=== PATIENT | male | born 1975 | race Caucasian/White ===

== ENCOUNTER 2016-04-20 10:12 | Inpatient (IN) | payer OTHER ==
[~2016-04-20] VITALS: Ht 177.8 cm; Wt 102.5 kg
--- NOTE | ~2016-04-20 | RESCARESUM ---
"PATIENT: WAYNE GARCIA | | [facility] UNIT #: [id number] | [address] AGE/SEX: 40 M : 73 | [address] | [place] [address] ADMIT/REG DATE: 04/20/16 | ROOM: [facility] LOC: ADTC | ADTC | Summary of Residential Care Primary [facility] Date of Admission: 04/20/16 Date of Discharge: 05/18/16 Referral Source: probation Primary Care Provider Prior to Admission: none Admitting Diagnosis: F15.20 Stimulant Use Disorder, severe; F12.20 Cannabis Use Disorder, severe; F10.20 Alcohol Use Disorder, moderate; Nicotine dependence, chronic low back pain all per Dr. Richardson's history and physical examination. Discharge Diagnosis: Same as above Goals Achieved: Client verbalized understanding of the severity of his powerlessness and unmanagability related to his substance use. He practiced identifying and appropriately expressing feelings. Client began to work on relapse triggers and a prevention plan. Continued Obstacles to Sobriety/Relapse Issues: Client continues to have criminal thinking in all aspects of his life. He needs to work on this and his anger in order to prevent himself from relapsing. Family Issues Addressed: Client attended family education with his significant other. Y Individual Therapy Y Group Therapy Y Educational Series on Substance Abuse Y Parents/Significant Others Attended Family Program N Acute Medical Problems During the Course of Treatment N Transferred to Hospital During the Course of Treatment Y Accepting of Substance Abuse Problem N Non-accepting of Substance Abuse Problem N Required Psychological or Psychiatric Consultation During the Course of Treatment Completed AA Step # 1 During This Level of Care Significant Incidences During Treatment: None Reason For Discharge: X Completed Residential TX Goals and Ready For Next Level of Care N Left Tx Against Medical Advice/Treatment Goals Not Complete N Completed Residential Tx Goals But Refusing Continuing Care Recommendations N Discharged Due to Noncompliance/Treatment Goals not Completed N Discharged Earlier Than Planned Due to: Continuing Care Plan/Recommendations: PATIENT: WAYNE GARCIA | | [facility] UNIT #: [id number] | [address] AGE/SEX: 40 M : 73 | [address] | [place] [address] ADMIT/REG DATE: 04/20/16 | ROOM: [facility] LOC: ADTC | ADTC | Summary of Residential Care N Intensive Partial Care Y Sponsor N Partial Care Y AA Meetings/NA Meetings N Outpatient N Co-dependency Services N Therapeutic Community N 1/ Way House N 3/ Way House N Mental Health Therapy N Marriage Counseling Y Other Specific Continuing Care Plan: Client is going to reside at home in [place] and continue outpatient therapy with Benoit Juárez. He is recommended to attend NA/AA meetings, gain and reach out to a male sponsor, and work a strong program of recovery. PRIMARY COUNSELOR: Hilda Elizabeth"
--- NOTE | ~2016-04-20 | INDIVTXPL2 ---
"PATIENT: WAYNE GARCIA | | [facility] UNIT #: [id number] | [address] AGE/SEX: 40 M : 73 | [address] | [place] [address] ADMIT/REG DATE: 04/20/16 | ROOM: [facility] LOC: ADTC | ADTC | Individualized Treatment Plan DATE: 04/27/16 Problem Statement/Issue Identified: Client continued to use alcohol &/or drugs despite ongoing negative consequences. Goal: Client will learn how to identify negative consequences of his addiction, attend AA/NA meetings and meet men in recovery. Objectives/Activities to achieve goal: 1. Client is to complete the How to Get Started packet, which will help him take a look at how his addiction has progressed in his life, and share it with his counselor and selected pages in group. Due Date: 05/04/16 Complete: Incomplete: 2. Client is to complete Step 1, learning how he compromised his core values, and share with his counselor and selected pages in group. Due Date: 05/04/16 Complete: Incomplete: 3. Client is to attend AA/NA meetings, ask for and get at least 5 names and numbers of men in recovery, so he can build a support system and gain a possible sponsor and share with his counselor. Due Date: on-going Complete: Incomplete: Client Signature Date Counselor Signaure: Date Outcome/Measurement of Progress Towards Goal: Counselor Signature: Date "
--- NOTE | ~2016-04-20 | TXPLANREV ---
"PATIENT: WAYNE GARCIA | | [facility] UNIT #: [id number] | [address] AGE/SEX: 40 M : 73 | [address] | [place] [address] ADMIT/REG DATE: 04/20/16 | ROOM: [facility] LOC: ADTC | ADTC | Treatment Plan/Staffing Review Date: 05/11/16 Treatment plan was reviewed and determined appropriate as written: yes Treatment plan was reviewed and the following changes/addition/deletions are necessary: Client will discharge from treatment and [facility]. Client will then return home and do counseling with Benoit Juárez. Probation is in agreement with this. Discharge plans were reviewed and determined appropriate as previously documented: Client will complete treatment and then finish out his sentence in [facility]. Client will then return home and continue counseling with Benoit Juárez. Discharge plans were reviewed and determined to be as follows: see above Other pertinent issues discussed during this staffing review include: none Staff Present: Sonal Rojas, Kelsie Parra, Shakira Farrell PRIMARY COUNSELOR: Hilda Elizabeth Client Signature Counselor Signature Date Time "
--- NOTE | ~2016-04-20 | CLPRLASSUM ---
PATIENT: WAYNE GRACIA | | [facility] UNIT #: [id number] | [address] AGE/SEX: 40 M : 73 | [address] | [place] [address] ADMIT/REG DATE: 04/20/16 | ROOM: [facility] LOC: ADTC | ADTC | Client Problem List/Assessment Summary Date: 04/27/16 Problems identified by the client: feeling alone, isolating, Problems identified by significant others: old friends, cravings Client's Strengths: good dad, leadership, can go in the right direction Problem List: Code: T Client continued to use drugs despite ongoing negative consequences. Code: T Client does not "reach-out to others for help" and instead resumes using drugs. Code: T Client relapsed/returned to drug usage after previous treatment attempts. Code: T Client has unresolved guilt and shame issues and needs to work on forgiveness of self to avoid relapse. Code [place]: T: to be addressed during course of treatment O: problem noted, expected to resolve itself with abstinence--specific tx plan not required R: problem noted, will be referred upon discharge PRIMARY COUNSELOR: Hilda Elizabeth
--- NOTE | ~2016-04-20 | TXPLANREV ---
"PATIENT: WAYNE GARCIA | | [facility] UNIT #: [id number] | [address] AGE/SEX: 40 M : 73 | [address] | [place] [address] ADMIT/REG DATE: 04/20/16 | ROOM: [facility] LOC: ADTC | ADTC | Treatment Plan/Staffing Review Date: 05/04/16 Treatment plan was reviewed and determined appropriate as written: yes Treatment plan was reviewed and the following changes/addition/deletions are necessary: Client is wanting to go home from treatment and continue therapy with Benoit Juárez. Discharge plans were reviewed and determined appropriate as previously documented: yes Discharge plans were reviewed and determined to be as follows: Client wants to return home and continue therapy with Benoit Juárez. Other pertinent issues discussed during this staffing review include: none Staff Present: Sarah Rangel, Sonal Rojas PRIMARY COUNSELOR: Hilda Elizabeth Client Signature Counselor Signature Date Time "
--- NOTE | 2016-04-20 12:56 | NUR ---
ADMISSION NOTE Rights/Responsibilities: Copy given and explained to client. Signed and accepted by client. Client oriented to physical lay out of the ADTC unit, given Big Book and admission packet. A Clement was assigned. Salvador Client is a 40yr old single male. Referred by Benoit Encarnacion. Brought to tx by friend for [facility] where he has been for the past 90 days. Lives in [place], [place]. DOC, meth last used 01/27/16, two grams daily. No allergies, No meds. Parents will participate in tx. Was searched no contraband found. Initial paperwork given and guidelines gone over. Doctor was notified.
--- NOTE | 2016-04-20 20:01 | NUR ---
SPIRITUaL EDUCATION 1 HR. Today we discussed difference between spirituality and orthodoxy, and then played a spiritual challenge game where group discussed thought provoking questions on spirituality and the meaning.
--- NOTE | 2016-04-20 22:41 | NUR ---
EDUCATION NOTE: 1 HR Counselor gave a lecture on Disease Concept
--- NOTE | 2016-04-20 23:35 | NUR ---
tech note: Client was seen by the DR. Client played Pictionary for recreation & attended onsite NA [facility] [place]. Client gave his first intro. Client was seen by the
--- NOTE | 2016-04-21 04:09 | NUR ---
BED NOTE: Client was in bed, motionless with eyes closed all three bed checks.
--- NOTE | 2016-04-21 06:15 | NUR ---
Medication Note: Client took prn ibuporphen for H/A rated at 10. Client had a small snack it the kitchen.
--- NOTE | 2016-04-21 11:57 | NUR ---
Group 1.5 Hr Ratio 2:20/Topic today was dealing with trauma. A new peer was also orientated to group rules and goals. Client shared how he could relate to what peers were sharing related to trauma.
--- NOTE | 2016-04-21 15:19 | NUR ---
Individual Therapy, 1.0 hours, This session focused on orienting client about individual therapy, group and rules of group, family participation, release of information and contact, confidentiality, visiting hours and visitors list, significant event forms, and room checks. Clients inital treatment plan was also reviewed.
--- NOTE | 2016-04-21 15:26 | NUR ---
Family contact: Clients mother and significant other was called and invited to family education. She was also given visiting hours.
--- NOTE | 2016-04-21 15:27 | NUR ---
Trauma Note: Client talked about trauma that he has had in the past which will be addressed in individual counseling sessions.
--- NOTE | 2016-04-21 15:29 | NUR ---
Tech Note: Client participated in Spiritual Enrichment in the morning and went for an outdoor walk in the afternoon. Client stated that he is working on, "How to Get Started in Treatment."
--- NOTE | 2016-04-21 16:29 | NUR ---
Step ed./1 hr/ Focus was on step 7 "Humbly asked him to remove our shortcomings". Had them complete some questions on paper then discussed. This client participated.
--- NOTE | 2016-04-21 22:07 | NUR ---
EDUCATION NOTE 1HR: Recovery committee presented information on recovery
--- NOTE | 2016-04-21 22:10 | NUR ---
EDUCATION NOTE 1HR: Clients watched Nikolai Langston video on Behavior
--- NOTE | 2016-04-21 22:36 | NUR ---
TECH NOTE: Client helped by doing crafts for the dance for REC, and attended AA meeting.
--- NOTE | 2016-04-22 04:39 | NUR ---
Bed note: client was in bed moitionless with eyes closed and no distress at all bed checks.
--- NOTE | 2016-04-22 11:54 | NUR ---
Group 1.5 Hr Ratio 1:11/Topics today were orientating a new member to group rules and goals and a couple getting started packets. Client shared how he could relate to what peers were sharing from their assignments and issues. Client shared 1.5 hr groups are too long and was explained it develops patiense.
--- NOTE | 2016-04-22 15:50 | NUR ---
PEER REVIEWS 1.25 HRS: Clt participated in peer reviews and took a risk to give open and honest feedback to those receiving a review.
--- NOTE | 2016-04-22 16:08 | NUR ---
Tech Note: Client watched video (The [employer]ablers) and is working on Getting Started.
--- NOTE | 2016-04-22 22:14 | NUR ---
Tech Note : Client worked crafts and projects for the dance. Client watched TV.
--- NOTE | 2016-04-23 04:35 | NUR ---
Bed note: Client was in bed with eyes closed and no distress at all bed checks.
--- NOTE | 2016-04-23 17:51 | NUR ---
Tech Note: Client attended N.A. Panel and is working on getting started.
--- NOTE | 2016-04-23 19:08 | NUR ---
tech note: client attended offsite Alumni Dance.
--- NOTE | 2016-04-24 04:52 | NUR ---
BED NOTE: Client was in bed, motionless with eyes closed all three bed checks.
--- NOTE | 2016-04-24 14:56 | HP ---
ADMIT: 04/20/2016 RM/LOC: [facility] [id number] [id number] [address] [place] [id number] [place] [address] [facility] History and Physical SEX: M AGE: 40 : 1975 DATE OF SERVICE: REASON FOR ADMISSION: Admission to the residential care program at the [facility]. CHIEF COMPLAINT: Drug addiction. CLINICAL HISTORY: The patient is a 40-year-old, white male, admitted to the residential care program for treatment of his stimulant/methamphetamine use disorder, cannabis use disorder, and alcohol use disorder. The patient notes that this is his fourth time in treatment. He has been through treatment in 2000 at [facility]; in 2003, he was here at the [facility]; most recently, he was here in 2013. The patient notes that following his last treatment, he completed treatment and then was sober for approximately 1 year before relapsing. Last time, he was in treatment, as noted, from 06/26/2013 through 07/18/2013. The patient notes that he comes to treatment after having spent the last 3 months in [facility], having been [facility] in [facility] and setting in [facility] since mid January. He notes that he had relapsed about 3-4 months prior to being arrested and placed in [facility]. The patient notes he has an extensive legal history with over 33 arrests and 28 convictions. He currently has been sitting in [facility] because of an arrest for possession of methamphetamine with intent to deliver. He also is currently on probation for past drug-related charges. The patient notes he has spent an extensive amount of time in [facility], related to his ongoing drug use. He notes that his drug of choice is methamphetamine. He has been using meth off and on since age 14. When he is using, he is a daily user, typically using 1-2 g per day. He usually either uses it IV, smokes or snorts it. He notes that his second drug of choice is marijuana. He has been smoking pot since age 11 and is a daily pot user, usually going through about an 8th of an ounce per week. The patient notes that he has been drinking since he was 8 or 9 years of age. Notes that he drinks on a limited basis now but often time, he is drinking, that leads him to relapse back on meth and pot, so he does feel his drinking is also an issue. He notes when he is using meth, he really has no desire to drink but usually, his pattern when he relapses is to start drinking and that ultimately leads into his drug use. The patient does admit to past abuse of cocaine. He has also experimented with hallucinogens in the past, using acid and mushrooms but has not used any of those in the last 10-15 years. He denies any abuse of prescription drugs. As noted, this will be his fourth time in treatment. PAST MEDICAL HISTORY: Recent hospitalizations. He was last here in 2013 at the [facility]; otherwise, no other recent medical admissions. The patient was hospitalized in 2008 with influenza A-related pneumonia. He contracted the influenza a while confined in group home. No other recent hospitalizations. PREVIOUS SURGERIES: None. CURRENT MEDICATIONS: 1. The patient notes that he is on Zyprexa 10 mg 1 at bedtime. Notes that he was started on Zyprexa while he was in [facility]. ADMIT: 04/20/2016 RM/LOC: [facility] MR#: [id number] [address] [place] [id number] WAYNE [address]ARC[address] [place] [address] [facility] History and Physical SEX: M AGE: 40 : 1975 2. He has been on atorvastatin 40 mg one daily for his hyperlipidemia but he has not taken that in the last 8 months. ALLERGIES: NONE KNOWN. MEDICAL ILLNESSES: The patient denies any chronic health problems that he is aware of. He is noted to be a smoker, and is starting to have some early symptoms of COPD as far as chronic cough and dyspnea with exertion. The patient does have a history of IV drug use and is at high risk for blood-borne pathogens. Previous testing for hepatitis C, hepatitis B, and HIV have been negative. REVIEW OF SYSTEMS: A 12-point review of systems is otherwise negative with no other significant cardiac, pulmonary, GI, , musculoskeletal, or neurologic problems. SOCIAL HISTORY: The patient is single. He has been living in a home that he rents in [place], [place]. He has 4 children from 2 different ex-girlfriends. 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 The patient notes that he dropped out of high school in the 10th grade, has never gotten his GED. FAMILY HISTORY: The patient notes that he was adopted. He does not know much about his parents, other than his biologic mother was an alcoholic and an addict. The patient notes that his adoptive parents when he was in his 20s. He does have a close relationship with his adoptive mother. He notes that he is aware of 1 full sibling, a brother, who is also had drug and alcohol issues. He also is aware of 3 other half-siblings and from what he understands, they have also had some ongoing difficulty with chemical dependency. He notes a strong history of substance abuse in his family including aunts, uncles, and multiple cousins. PHYSICAL EXAMINATION: VITAL SIGNS: Temp is 96.1, pulse 95, respirations 20, blood pressure 139/81, height 5 feet 10 inches, weight is 224 pounds. GENERAL: The patient is a 40-year-old male, who appears his stated age. He is in no acute distress. He is oriented x3. HEENT: Unremarkable. NECK: Supple. Thyroid not enlarged. No cervical adenopathy. LUNGS: Noted to be a little diminished in the bases. Breath sounds are coarse. No wheezes or rales. HEART: Has a regular rhythm without murmur. ABDOMEN: Soft, nontender, obese. No masses or organomegaly. Bowel sounds are normoactive. Genitalia normal male. EXTREMITIES: Normal to gross exam. No bony deformities. No clubbing or cyanosis. INTEGUMENT: No rashes or suspicious skin lesions. No recent needle tracks ADMIT: 04/20/2016 RM/LOC: [facility] MR#: [id number] [address] [address] WAYNE GARCIA [address] [place] [address] [facility] History and Physical SEX: M AGE: 40 : 1975 noted. NEUROLOGICAL: He is intact with no focal deficits. MENTAL STATUS EXAMINATION: He is pleasant and cooperative. Affect is appropriate. He has no bizarre ideation. No delusions or hallucinations. No significant depressive symptoms. He is oriented x3. His memory is intact. He appears to be of average intelligence; however, his insight is limited and judgment is guarded. ASSESSMENT AT THE TIME OF ADMISSION: 1. Methamphetamine/stimulant use disorder, severe. 2. Cannabis use disorder, severe. 3. Alcohol use disorder, moderate. 4. Tobacco use disorder/nicotine dependence. 5. Chronic low back pain. PLAN: Plan is to admit the patient to the residential care program with a tentative discharge date of 05/18/2016. Upon completion of treatment, the patient needs to go to a care home house. He will benefit from the supportive environment and structure of a sober living community. At this time, we are going to discontinue the Zyprexa that he has been taking at bedtime while in [facility]. We see no evidence of psychosis or other significant indication to keep him on the Zyprexa. We will discontinue Zyprexa. We will use melatonin to help for sleep. We will follow his mental status closely along with his counselor. Dwight Richardson MD/ mat JOB #: [id number] CC: Dwight Richardson, Attending Physician FAMILY PHYSICIAN, Family Physician
--- NOTE | 2016-04-24 16:37 | NUR ---
Tech Note: Client participated in Big Book Study in the morning and went for a walk in the afternoon. Client stated that he is working on, "How to Get Started in Treatment." Client attended sikh.
--- NOTE | 2016-04-24 23:07 | NUR ---
tech note: Client attended AA Panel & participated in Community Clean. Client watched tv & movies. Client was redirected by tech for laying on the floor in the Community Room-client complied and got up off the floor. SE: Visits.
--- NOTE | 2016-04-25 04:12 | NUR ---
bed note: client was in bed with eyes closed and no distress at all bed checks.
--- NOTE | 2016-04-25 10:40 | NUR ---
Tech notes: Client is working on Step 1.
--- NOTE | 2016-04-25 12:00 | NUR ---
Peer Review 1.5 hr/ Clients all participated in giving peer review to 4 peers on what they need to work on.
--- NOTE | 2016-04-25 12:54 | NUR ---
Education note: Client attended educational helder Davey on Marijuana.
--- NOTE | 2016-04-25 16:41 | NUR ---
Recovery 101 1 hr/ Clients discussed fundamental tools and what is important to work a strong recovery program such as: 12 steps, getting and using a sponsor, meetings/home group, read C.A.L., H.O.W./being honest, service work, HP concepts/spirituality, opening up, slogans, serenity prayer, etc. Also discussed the balance, recovery as way of life, 85% is the living problem and why people still go to meetings for their lifetime.
--- NOTE | 2016-04-25 23:41 | NUR ---
Tech Note: Client attended N.A.Meeting. Client also went on walk for rec. SE: N.A.Meeting
--- NOTE | 2016-04-25 23:58 | NUR ---
Education Note: 1 hour lecture on communication given by counselor.
--- NOTE | 2016-04-26 04:11 | NUR ---
Bed Note: client was in bed with eyes closed and no distress at all bed checks.
--- NOTE | 2016-04-26 11:30 | NUR ---
GROUP 1.5 HRS. 1:10 Client participated in orienting new peer to purpose and rules of group. New peer shared feelings of fear and hopelessness which lead to group discussion on learning to deal with feelings approrpriately. Group read pg. 62 of ALCOHOLICS ANONYMOUS and addressed issues of self-centeredness and being driven by ..."fear, self-delusion, self-seeking and self-pity". Client shared that he has not seen his sons in 7 years and was begining to rebuild relationship with his daughter and then he relapsed.
--- NOTE | 2016-04-26 17:06 | NUR ---
Relapse Prevention, 02/24, 1.0 hours, Client attended and actively participated in relapse prevention which focused on completing the quiz What Do You Know About Relapse?
--- NOTE | 2016-04-26 17:34 | NUR ---
ech Note: Client is working on Step 1.
--- NOTE | 2016-04-26 23:16 | NUR ---
Tech Note: Client took walk around park for rec. Client attended A.A.Meeting. SE: Speaking with his process tech
--- NOTE | 2016-04-26 23:25 | NUR ---
Education Note: Client attended a one hour session with [facility] on HIV/AIDS/STD's for education.
--- NOTE | 2016-04-27 04:47 | NUR ---
Bed Note: client was in bed with eyes closed and no distress at all bed checks.
--- NOTE | 2016-04-27 10:28 | NUR ---
Tech notes: Client is working on Step 1
--- NOTE | 2016-04-27 12:50 | NUR ---
Group 1.5 hrs 1:10 Client participated in orientating a new peer on the purpose of group and guidelines. Client also shared about his experience with writing a letter to his addiction. Student: Randall Combs
--- NOTE | 2016-04-27 15:37 | NUR ---
SPIRITUAL EDUCATION 1 hr. Today we oriented newcomers, discussed Starfish story then reached out to newcomers writing letters of encouragment and welcome, and using word art to make Big Book Bookmarks as welcoming gift.
--- NOTE | 2016-04-27 19:11 | NUR ---
Education: 1 Hour. Client attended Step 2 & Step 3 lecture given by staff.
--- NOTE | 2016-04-27 23:18 | NUR ---
Tech note : Client went for a walk around the park for rec and attended an onsite NA meeting. SE: Making it through the day
--- NOTE | 2016-04-28 05:15 | NUR ---
tech note: client was motionless in no distress at all bed checks.
--- NOTE | 2016-04-28 11:45 | NUR ---
Group 1.5 Hr Ratio 1:11/Topics were a feelings letter which lead to difficult dads. Client shared he could relate to having a difficult dad and became very mad at this counselor when he was directed to look at his part in the situation adn what his ex's did to deserve to be called bitches. He was able to process his anger and see he likes things his way. He did minimize his part in rough relationships but was chalanged to look at what would happen if his kids wanted to be around him if he is still using.
--- NOTE | 2016-04-28 13:48 | NUR ---
Tech Note: Client participated in Spiritual Enrichment in the morning and went for an outdoor walk in the afternoon. Client stated that he is working on, Step One.
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
--- NOTE | 2016-04-28 23:10 | NUR ---
Tech note:client took walk for rec, participated in guided meditation and attended AA mtg. S/O was at AA mtg Client was smoking during the walk. SE: AA meeting.
--- NOTE | 2016-04-29 04:49 | NUR ---
Bed Note: Client was motionless with eyes closed at all bed checks.
--- NOTE | 2016-04-29 11:38 | NUR ---
GROUP 1.5 HRS. 1:9 Group discussion included processing step 1 assignment to included betraying values (pg. 10) and effects on onthers (pg. 11). Client did appear to nod off momentarily but was still able to offer some insightful and personal feedback. He shared about relationship with his dad and issues with his kids.
--- NOTE | 2016-04-29 12:37 | NUR ---
Peer Review 1.5 hr/ Clients all participated in giving peer review to 4 peers on what they need to work on.
--- NOTE | 2016-04-29 12:44 | NUR ---
Individual Therapy: 1.0 hours, This session focused on reviewing clients treatment plan, biopsychosocial, Getting Started Packet and he was assigned Step 1. Client shared that he has a lot of shame for not being there for his kids like he should be.
--- NOTE | 2016-04-29 13:39 | NUR ---
Tech Note: Client watched Predator Pt.2 video and is working on Step 1.
--- NOTE | 2016-04-29 23:48 | NUR ---
TECH NOTE: Client participated in reading guidelines, and watched tv/movies. CLient was late for curfew SE: video
--- NOTE | 2016-04-30 04:07 | NUR ---
BED NOTE: Client was in bed, motionless, with eyes closed all bed checks.
--- NOTE | 2016-04-30 15:56 | NUR ---
Tech Note: Client attended an off-site AA meeting in the morning and received a visit in the afternoon. Client stated that he is working on Step One.
--- NOTE | 2016-04-30 19:49 | NUR ---
TECH NOTE: Client played Gaming Live TV for REC, attended offsite AA meeting and watched tv/movies. SE: visitors
--- NOTE | 2016-05-01 04:11 | NUR ---
Bed Note: Clt lay motionless in bed with eyes closed showing no distress at all bed checks.
--- NOTE | 2016-05-01 16:05 | NUR ---
Tech Note: Client read chapter 4 for Big Book study. Clt is working on Step 1 and went to uatsdin service. Clt had visit.
--- NOTE | 2016-05-01 22:15 | NUR ---
Tech Note : Client listened to an AA panel member share his experience, strength and hope, watched tv and participated in community clean.
--- NOTE | 2016-05-02 04:50 | NUR ---
Bed Note: Clt lay motionless in bed with eyes closed showing no distress at all bed checks.
--- NOTE | 2016-05-02 10:21 | NUR ---
Tech notes: Client is working on Step 1 and mtg with latricia and Bree today.
--- NOTE | 2016-05-02 11:30 | NUR ---
Group 1.5 hr/ 22:2 Clients all participated in Sculpturing today by role-playing, giving feedback and relating. This client was attentive and all did discuss relapse can happen to anyone, and how to prevent it.
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
--- NOTE | 2016-05-02 16:54 | NUR ---
Recovery 101 1 hr/ Clients all brought Big Books and were given highlighters to use big book as a tool in recovery. Group discussion was on honesty, half- measures, selfishness, resentments, forgiveness, 12 promises, acceptance, using sponsor, and more.
--- NOTE | 2016-05-02 18:21 | NUR ---
EDUCATION NOTE: 1HR Lecture on Feelings given by counselor.
--- NOTE | 2016-05-02 22:50 | NUR ---
tech note: Client went for a walk for rec, attended NA meeting SE:walk
--- NOTE | 2016-05-03 04:39 | NUR ---
bed note:client was in bed with eyes closed and no distress at all bed checks.
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
--- NOTE | 2016-05-03 14:31 | NUR ---
Tech Note: Client participated in light stretching in the morning and went for an outdoor walk in the afternoon. Client followed programming.
--- NOTE | 2016-05-03 14:46 | NUR ---
Education 0.5 Hour: Client watched the video, "How to Sabotage Your Treatment."
--- NOTE | 2016-05-03 15:25 | NUR ---
Individual Session: .5hrs [facility] [employer] Caret[employer] met with clt to install a safe place and discuss EMDR for a trauma issue. He was able to self soothe himself. He will practice using his safe place over the weekend. He will let me know if he want to use EMDR.
--- NOTE | 2016-05-03 18:53 | NUR ---
Education: 1 Hour. Staff gave lecture on Step 1.
--- NOTE | 2016-05-03 23:42 | NUR ---
tech note: client played Pictionary for recreation,attended Guided Meditation & onsite AA meeting. SE: Group.
--- NOTE | 2016-05-04 04:44 | NUR ---
tech note: Client was motionless in no distress at all bed checks.
--- NOTE | 2016-05-04 10:08 | NUR ---
Tech note: Client is working on Step 1 and Fl's
--- NOTE | 2016-05-04 11:41 | NUR ---
Group 1.5 Hr Ratio 1:10/Topics were orientatinga new member to group rules and goals, a getting started packet and a vent letter. Group was interupted by a tornado drill. Client shared positive feedback as to how he could relate to what others were sharing from issues and assignments.
--- NOTE | 2016-05-04 12:59 | NUR ---
Education note: Client attended educational speaker "Kit" on cross addiction.
--- NOTE | 2016-05-04 18:16 | NUR ---
SPIRITUAL EDUCATION 1 HR. ORIENTED NEWCOMERS, DISCUSSED ADDICTIVE SELF VS SPIRITUAL SELF THEN DEPICTED IN ARTWORK.
--- NOTE | 2016-05-04 18:22 | NUR ---
Education: 1 Hour. Client attended Relapse Prevention lecture given by staff.
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
--- NOTE | 2016-05-05 04:24 | NUR ---
Bed Note: Clt lay motionless in bed with eyes closed showing no distress at all bed checks.
--- NOTE | 2016-05-05 11:30 | NUR ---
AM GRP 1.5 HRS, Ratio 1:11/ Clt participated in grp discussion on various topics, including relationships, controlling behaviors, the basics of recovery. He stated he knows he gets controlling, and it's generally out of fear. When he prays he feels better.
--- NOTE | 2016-05-05 14:37 | NUR ---
Tech Note: Client participated in light stretching for morning exercise and went on an outdoor walk in the afternoon. Client stated that he is working on Step One and writing Feelings Letters.
--- NOTE | 2016-05-05 16:18 | NUR ---
Education 1 Hour: Client watched the video, "Feelings" by Father Tenzin.
--- NOTE | 2016-05-05 16:51 | NUR ---
FAMILY EDUCATION 3 hrs. Client was accompanied by his S/O. They took part in the discussion on the disease concept and the progression and consequences.
--- NOTE | 2016-05-05 19:02 | NUR ---
Education 1HR: Clt watched video entitled "Say Yes To Life" by father Leeroy Kelleyoth.
--- NOTE | 2016-05-05 22:53 | NUR ---
Tech Note: Clt played a game for recreation, attended GM and onsite AA mtg. SE was all day
--- NOTE | 2016-05-06 04:42 | NUR ---
BED NOTE: Client was in bed, motionless with eyes closed all bed checks
--- NOTE | 2016-05-06 10:28 | NUR ---
Tech Note: Client is working on Feelings Letters.
--- NOTE | 2016-05-06 11:30 | NUR ---
AM GRP 1.5 HRS, Ratio 1:11/ Clt participated in grp discussion on various topics and could relate to hurting family and thinking he can do this for his kids, but how he may not get visits or even get to talk to them this weekend.
--- NOTE | 2016-05-06 13:32 | NUR ---
Late Note for 05/02/16 due to illness: Group 1.5 hr/ 22:2 Clients all participated in Sculpturing today by role-playing, giving feedback and relating. This client was attentive and all did discuss relapse can happen to anyone, and how to prevent it.
--- NOTE | 2016-05-06 13:40 | NUR ---
Late Note for 05/03/16 due to illness: Relapse Prevention, 02/24, 1.0 hours, Client attended and actively participated in relapse prevention educatio which focused on internal and external triggers.
--- NOTE | 2016-05-06 13:57 | NUR ---
Late entry for 05/03/16 due to illness. Individual Therapy, 1.0 hours, This session focused on reviewing clients Getting Started packet and Step 1. Client also read his feelings letter to his significant other and discussed his feelings about it.
--- NOTE | 2016-05-06 15:14 | NUR ---
Peer review 1 hr/Each person gave feedback to 4 clients using I see, I think, and I feel. This client participated with giving feedback.
--- NOTE | 2016-05-06 21:47 | NUR ---
Tech note : Client watched tv and participated in beaded project.He talked on the phone.
--- NOTE | 2016-05-07 04:44 | NUR ---
Bed note: Client was in bed with eyes closed and no distress at all bed checks.
--- NOTE | 2016-05-07 15:01 | NUR ---
Tech note: Client attended NA panel and is working on Fl's and had visit.
--- NOTE | 2016-05-07 20:49 | NUR ---
Tech note: Client worked on beaded projects or watched basketball game for rec attended offsite AA meeting SE:NA panel
--- NOTE | 2016-05-08 04:52 | NUR ---
Bed note: client was in bed with eyes closed and no distress at all bed checks,
--- NOTE | 2016-05-08 15:31 | NUR ---
TECH NOTE: Client participated in big book study, went to adventist, and watched tv/movies. had visitors
--- NOTE | 2016-05-08 19:02 | NUR ---
tech note:Attended AA panel, participated in community clean, watched tv and movies
--- NOTE | 2016-05-09 04:19 | NUR ---
tech note: Client was motionless in no distress at all bed checks.
--- NOTE | 2016-05-09 09:49 | NUR ---
Tech note: Client is working on Fl's
--- NOTE | 2016-05-09 11:30 | NUR ---
Morning Group, 02/16 ratio, 1.5 hours, Client attended and actively participated in group. Client shared how he could relate to one of his peers relationship with their father.
--- NOTE | 2016-05-09 13:01 | NUR ---
Education note: Client attended education speaker Hanna on tobacco
--- NOTE | 2016-05-09 20:29 | NUR ---
Education 1HR: Clt attended lecture given by counselor on Forgiveness.
--- NOTE | 2016-05-09 21:12 | NUR ---
COUNSELOR NOTE: This client did approach me following Family Group and asked for more information on the CoDependency tx for his SO. I told him that we will have that information for him tomorrow and explained the cost set up.
--- NOTE | 2016-05-09 22:59 | NUR ---
Tech note: Client participated in family group this evening.
--- NOTE | 2016-05-10 04:09 | NUR ---
Bed Note: Clt lay motionless in bed with eyes closed showing no distress at all bed checks.
--- NOTE | 2016-05-10 15:14 | NUR ---
Tech Note: Client participated in light stretching for morning exercise and went on an outdoor walk in the afternoon. Client stated that he is working on writing Feelings Letters and, "Relapse Prevention."
--- NOTE | 2016-05-10 15:33 | NUR ---
Education 0.5 hour: Client attended a session on sexual health topics.
--- NOTE | 2016-05-10 16:17 | NUR ---
Relapse Prevention, 02/24, 1.0 hours, Client attended and actively participated in relapse prevention education which focused on early warnning signs of relapse.
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
--- NOTE | 2016-05-10 23:02 | NUR ---
Tech note : client participated in rec by decorating for [employer]. Client went to the alumni meeting and attended an onsite AA meeting.
--- NOTE | 2016-05-11 05:16 | NUR ---
Bed note : Client was motionless with eyes closed at all bed checks.
--- NOTE | 2016-05-11 10:09 | NUR ---
Tech Notes: Client is working on Relapse prevention, Fl's and mtg with latricia
--- NOTE | 2016-05-11 12:49 | NUR ---
Education note: Client attended education by [facility]
--- NOTE | 2016-05-11 14:16 | NUR ---
PEER REVIEW 22:1/1.5 HR: Client underwent a Peer Review this morning and heard feedback from peers. Client heard that he "is holding on to a lot of reservations, holds onto anger, needs to learn how to process through his anger, comes off as a smart-ass, uses humor as a defense, is doing treatment for the wrong reasons, needs to talk about his hurt & self-doubt, needs to forgive self, holds on to resentments, afraid to let others get close, stuck in his old ways." Client appeared embarassed and red-faced. He admitted that he has guilt for "letting down his girls," and has resentments toward his kids mom. He appeared to take feedback well.
--- NOTE | 2016-05-11 17:16 | NUR ---
SPIRITUaL EDUCATION 1 HR. Today we oriented newcomers and the activity was reading and putting on presentations on portions of TOWARDS SPIRITUALITY.
--- NOTE | 2016-05-11 22:21 | NUR ---
Tech note : Client went for a walk and worked on some crafts. Client celebrated a tech's birthday and attended an onsite NA meeting.
--- NOTE | 2016-05-11 22:41 | NUR ---
SPIRITUaL EDUCATION 1 HR. Today we oriented newcomers and the activity was reading and putting on presentations on portions of TOWARDS SPIRITUALITY.
--- NOTE | 2016-05-12 04:56 | NUR ---
Bed note: Client was moitionless with eyes closed at all bed checks.
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
--- NOTE | 2016-05-12 12:04 | NUR ---
Group 1.5 Hr Rtio 2:20/Topics today were orientating a new client to group rules and goals. Relapse prevention was also a topic. Client shared he can not be around some one using or he has to join in.
--- NOTE | 2016-05-12 14:41 | NUR ---
Tech Note: Client attended Spiritual Enrichment in the morning and went for an outdoor walk in the afternoon. Client stated that he is working on, "Relapse Prevention."
--- NOTE | 2016-05-12 15:50 | NUR ---
Education 1 Hour: Client heard from a recovery speaker who shared his experience, strength and hope.
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
--- NOTE | 2016-05-12 18:33 | NUR ---
Education: 1 Hour. Clients watched Picking up the Pieces for education.
--- NOTE | 2016-05-12 23:19 | NUR ---
tech note: client went on walk for recreation,participated in Guided Meditation & attended onsite AA meeting. SE: speaking his mind in the AA meeting.
--- NOTE | 2016-05-13 04:07 | NUR ---
Bed note: Client was moitionless with eyes closed at all bed checks.
--- NOTE | 2016-05-13 12:43 | NUR ---
Group 1.5 Hr Ratio 1:11/Topics today were orientatinmg two new members to group rules and goals, feelings letters and dealing with childhood issues. Client shared feelings letters to his daughters and sons. Client received feedback that he could write individual letters instead of together. Client asked too much of his kids to help him stay sober and could have owned his addiction instead of just blaming the disease.
--- NOTE | 2016-05-13 13:00 | NUR ---
PEER REVIEWS 1 HR: Clt participated in peer review process and was able to give open and honest feedback to those receiving a review.
--- NOTE | 2016-05-13 13:30 | NUR ---
Tech Note: Client went on group walk for recreation. Clt is working on Relapse Prevention.
--- NOTE | 2016-05-13 23:02 | NUR ---
TECH NOTE: Client participated in reading guidelines, watched tv/movies. SE: group
--- NOTE | 2016-05-14 04:47 | NUR ---
BED NOTE: Client was in bed, motionless with eyes closed all three bed checks.
--- NOTE | 2016-05-14 16:30 | NUR ---
Tech Note: Client is working on Relapse Prevention and had a visitor.
--- NOTE | 2016-05-14 23:36 | NUR ---
TECH NOTE: Client played Catch Phrase for REC, attended off site AA meeting, and watched TV/movies. SE: visits
--- NOTE | 2016-05-15 04:19 | NUR ---
Bed Note: Clt lay motionless in bed with eyes closed showing no distress at all bed checks.
--- NOTE | 2016-05-15 16:13 | NUR ---
Tech Note: Client participated in Big Book Study and stated that he is working on, "Relapse Prevention." Client received a visitor.
--- NOTE | 2016-05-15 22:43 | NUR ---
Client attended the [facility].TeePanel and participated in Community Clean. Client also attended LEASING ASSISTANT meeting. SE:Jacob
--- NOTE | 2016-05-16 04:03 | NUR ---
BED NOTE: Client was in bed, and motionless at all three bed checks.
--- NOTE | 2016-05-16 10:04 | NUR ---
Tech notes: Client is working on Goodbye letter to addiction and mtg with latricia.
--- NOTE | 2016-05-16 11:20 | NUR ---
AM Group 1.5hr/ 21:2 Clients all read The Wall an allegory and discussed how it related to the 12 steps/recovery. Each client davide and shared their wall.
--- NOTE | 2016-05-16 14:00 | NUR ---
Educational note: Client attended speaker for educationAric
--- NOTE | 2016-05-16 14:51 | NUR ---
Individual Therapy, 1.0 hours, This session focused on review of clients homework assignments on The Con Game and reading his feelings letters. Clients payment processor was also called and a discharge summary was faxed to his office. It was recommended that client work on his criminal feelings, letting go of his need to control, and letting feelings go.
--- NOTE | 2016-05-16 16:00 | NUR ---
RECOVERY 101 1 HR/ Clients all filled out consequences list to look at each chemical they have ever used and how many consequences were experiences with each drug. Many shared what they learned from this and their top 3 consequences, they also discussed early stage symptoms of their addiction. Counselor asked the group what would be a definition that includes all stages and this was discussed as well at stages of Denial, Anger, Compliance/defiance, admittance, acceptance and Surrender.
--- NOTE | 2016-05-16 20:39 | NUR ---
Education: 1 Hour. Client attended lecture on "Adult Children of Alcoholics" presented by staff.
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
--- NOTE | 2016-05-16 23:05 | NUR ---
Tech Note: Client played a game for rec and attended the on unit N.A.Meeting. Client also attended family. SE:_News from Medical Director/Head Team Physician
--- NOTE | 2016-05-17 04:18 | NUR ---
Bed Note: Client was in bed, and motionless at all three bed checks.
--- NOTE | 2016-05-17 13:13 | NUR ---
Tech Note: Nutritional Services presented information for the 1:00 speaker meeting. Client is working on [employer].
--- NOTE | 2016-05-17 14:16 | NUR ---
GROUP 1.5 HRS. 1:10 Clients oriented new peer to purpose and rules of group. Discussion included step 1 assignment with examples of powerlessness and unmanagability. This client shared his good-bye letter to "Debra" and did a good job. He is reminded to not just focus on one substance and to remember he is powerless over all substances.
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
--- NOTE | 2016-05-17 16:25 | NUR ---
Relapse Prevention, 02/25, 1.0 hours, Client attended and actively participated in relapse prevention education which focused on top 5 relapse triggers and how to avoid them.
--- NOTE | 2016-05-17 17:36 | NUR ---
Education Note: Topic was "[place] From Shame" presented by Kelsie.
--- NOTE | 2016-05-17 22:50 | NUR ---
TECH NOTE: Client did crafts/beads for REC and attended on site AA meeting. SE: No custodial
--- NOTE | 2016-05-18 04:01 | NUR ---
BED NOTE: Client was in bed, motionless with eyes closed all bed checks.
--- NOTE | 2016-05-18 10:02 | NUR ---
FINAL SESSION 1 HR: Clt was seen in the absence of his primary counselor. He is discharging and going home and will do his aftercare with Benoit Juárez. Clt did the survey, we did his continued care plan and he was given a coin and completed thru tx.
--- NOTE | 2016-05-18 10:03 | NUR ---
DISCHARGE NOTE Client left tx with s/o and all personal belongings were sent with. Discharge instructions gone over and copy given.
--- NOTE | 2016-06-23 12:51 | DS ---
ADMIT: 04/20/2016 RM/LOC: Chris [facility] MR#: [id number] [facility] [address] [address] [place] [address] [facility] General Discharge Summary SEX: M AGE: 40 : 1975 ADMISSION DATE: 04/20/2016 DISCHARGE DATE: 05/18/2016 ADMITTING DIAGNOSIS: As per history and physical. FINAL DIAGNOSES: 1. Methamphetamine/stimulant use disorder, severe. 2. Cannabis use disorder, severe. 3. Alcohol use disorder, moderate. 4. Tobacco use disorder/nicotine dependence. 5. Chronic low back pain. COMPLICATIONS: None. OPERATIONS: None. CLINICAL HISTORY: The patient is a 40-year-old, white male, admitted to the residential care program for treatment of his stimulant use disorder, cannabis use disorder, and alcohol use disorder. The patient notes that this is his fourth time in treatment. For details of his pattern of usage and problems associated with his long-term substance abuse and chemical dependency, please see the clinical history portion of the dictated history and physical. Please also see dictated history and physical for past medical history and physical exam findings. LABORATORY AND X-RAY SUMMARY FROM THIS ADMISSION: Laboratory included a chronic hepatitis C antibody, which was negative. HOSPITAL COURSE: The patient was admitted to the residential care program and assigned to his primary counselor, Hilda Elizabeth. He remained in treatment from 04/20/2016 until 05/18/2016. While in treatment, he participated in individual therapy and group therapy. He was given the educational series on substance abuse and worked on many of these assignments. While in treatment, he participated in the family education portion of the program. He attended family education and family group sessions with his significant other. While in treatment, he was accepting of his substance abuse problem. He was able to complete step 1 of AA during this level of care. While in treatment, he had no significant medical issues. He was able to verbalize a better understanding of the severity of his addiction. He gained a better understanding of the disease concept of addiction and was able to recognize his powerlessness over alcohol and drugs. He also was able to recognize the unmanageability of his life related to his substance use. He practiced identifying and appropriately expressing feelings. He worked on relapse prevention and was able to identify obstacles to his long-term sobriety and worked on developing his own relapse prevention plan. He ultimately completed ADMIT: 04/20/2016 RM/LOC: A.503 [facility] MR#: [id number] [facility] [address] [address] [place] [address] [place] [address] [facility] General Discharge Summary SEX: M AGE: 40 : 1975 his residential treatment goals and was felt to be ready for the next level of care. The patient is going to reside at his family's home in [place] where he lives with his mother and continue outpatient therapy with Benoit Juárez. He is going to attend 3 to 5 AA or NA meetings per week and maintain regular contact with a male sponsor and work a strong program of recovery. If unable to remain clean and sober while he is in outpatient treatment, we will then need to consider going to a sober living community such as a [facility]. CONDITION AT DISCHARGE: Improved. PROGNOSIS: Somewhat guarded. His only medications at dismissal were a multivitamin once daily and [id number] thiamine once daily. Dwight Richarsdon MD/ mat JOB #: [id number] CC: Dwight Richardson MD, Attending Physician FAMILY PHYSICIAN, Family Physician
== END 2016-05-18 10:05 | disposition home or self-care (01) | DRG 895 ==
LOC: ADTC 10:12
PROVIDERS: ADMIT Family Medicine
PROC: HZ34ZZZ Individual Counseling for Substance Abuse Treatment, Interpersonal (ICD-10-PCS; principal; 2016-04-20)
PROC: HZ43ZZZ Group Counseling for Substance Abuse Treatment, 12-Step (ICD-10-PCS; principal; 2016-04-20)
PROC: HZ63ZZZ Family Counseling for Substance Abuse Treatment (ICD-10-PCS; principal; 2016-04-20)
DX: F15.20 Other stimulant dependence, uncomplicated (principal); E78.5 Hyperlipidemia, unspecified; F12.20 Cannabis dependence, uncomplicated; F10.20 Alcohol dependence, uncomplicated; M54.5 Low back pain; G89.29 Other chronic pain; Z65.3 Problems related to other legal circumstances